=== PATIENT | female | born 1960 | race American Indian/Alaskan Native ===

== ENCOUNTER 2023-01-07 16:06 | Inpatient (IN) | payer MEDICARE, MEDICAID ==
[~2023-01-07] VITALS: Ht 167.6 cm; Wt 75.6 kg
[2023-01-07 19:14] LABS: BASOPHILS % (AUTO) 0.4 % (0-1); EOSINOPHILS # (AUTO) 0.1 X10'3 (0-0.9); EOSINOPHILS % (AUTO) 1.8 % (0-6); HEMATOCRIT 30.7 % (35.0-45.0); HEMOGLOBIN 10.2 g/dl (12.0-16.0); LYMPHOCYTES # (AUTO) 1.8 X10'3 (1.1-4.8); LYMPHOCYTES % (AUTO) 28.3 % (21-51); MEAN CORPUSCULAR HEMOGLOBIN 27.2 PG (27.0-31.0); MEAN CORPUSCULAR HGB CONC 33.2 g/dL (33.0-36.5); MEAN CORPUSCULAR VOLUME 81.9 FL (78-98); MEAN PLATELET VOLUME 6.7 FL (7.4-10.4); MONOCYTES # (AUTO) 0.4 X10'3 (0-0.9); MONOCYTES % (AUTO) 6.7 % (2-12); NEUTROPHILS # (AUTO) 3.9 X10'3 (1.8-7.7); NEUTROPHILS % (AUTO) 62.8 % (42-75); PLATELET COUNT 245 X10'3 (140-440); RED BLOOD COUNT 3.75 X10'6 (4.20-5.60); RED CELL DISTRIBUTION WIDTH 16.4 % (11.5-14.5); WHITE BLOOD COUNT 6.2 X10'3 (4.5-11.0)
[2023-01-07 19:28] LABS: ALANINE AMINOTRANSFERASE 37 U/L (12-78); ALBUMIN 3.5 G/DL (3.4-5.0); ALBUMIN/GLOBULIN RATIO 0.8 (1.1-1.5); ALKALINE PHOSPHATASE 79 IU/L (46-116); ANION GAP 8 (8-16); ASPARTATE AMINO TRANSFERASE 19 U/L (10-37); BILIRUBIN,TOTAL 0.4 MG/DL (0.1-1.0); BLOOD UREA NITROGEN 13 MG/DL (7-18); CHLORIDE 98 MMOL/L (99-107); GLUCOSE 347 MG/DL (70-104); LIPASE 174 U/L (73-393); POTASSIUM 4.2 MMOL/L (3.5-5.1); SODIUM 135 MMOL/L (135-145); TOTAL CARBON DIOXIDE 29.3 MMOL/L (24-32); eCRCL 53 ML/MIN; eGFR 56 ML/MIN
[2023-01-07 19:34] LABS: CALCIUM 9.6 MG/DL (8.5-10.1)
[2023-01-07 19:55] LABS: TOTAL CELLS COUNTED 100
[2023-01-07 19:56] LABS: ANISOCYTOSIS 1+; PLATELET ESTIMATE NORMAL; POLYCHROMASIA FEW
[2023-01-07 19:59] LABS: ELLIPTOCYTES FEW; TEAR DROP CELLS FEW
[2023-01-07] MEDS ORDERED: vancomycin/NS 1 GM ADD-VANTAGE 250 ML IV ONE (20:05)
[2023-01-07] MEDS ORDERED: CefTRIAXone 2gm/D5W 50ml BAG 50 ML IV ONE (20:05)
[2023-01-07] MEDS ORDERED: levoFLOXACIN-Levaquin 500mg/D5 100 ML IV ONE (20:50)
[2023-01-07] MEDS ORDERED: ondansetron/PF 4mg/2ml inj IV PRN (21:30)
[2023-01-07] MEDS ORDERED: acetaminophen 325mg tablet PO PRN (21:30)
[2023-01-07] MEDS ORDERED: magnesium Cl slow-release 64mg tablet PO PRN (21:30)
[2023-01-07] MEDS ORDERED: magnesium 4gm in 100ml NS 100 ML IV PRN (21:30)
[2023-01-07] MEDS ORDERED: magnesium 2GM in 50ml NS 50 ML IV PRN (21:30)
[2023-01-07] MEDS ORDERED: potassium Cl 40MEQ/1/2NS 520ml 520 ML IV PRN (21:30)
[2023-01-07] MEDS ORDERED: potassium Cl 20 mEq SR tablet PO PRN ×2 (21:30)
[2023-01-07] MEDS ORDERED: HYDROmorphone inj. 0.5 MG/0.5 ML DISP.SYRIN IV PRN (21:30)
[2023-01-07 23:10] VITALS: BP 149/79; PULSE 12; RESP 68; TEMP 97.7; O2SAT 100
--- NOTE | 2023-01-07 23:45 | NUR ---
CALLED DR. PRIDE FOR BS 324 ADVISED TO RECHECK IN AN HOUR.
[2023-01-08] MEDS: morphine 2 MG/ML inj. syringe IV PRN ×2 (00:07→05:06)
[2023-01-08] MEDS: normal saline 1000ml 1,000 ML IV SCH ×3 (00:17→22:19)
[2023-01-08] MEDS ORDERED: SALI45SP PO (00:55)
[2023-01-08] MEDS ORDERED: METF-516 PO (00:55)
[2023-01-08] MEDS ORDERED: CLIN300C54 PO (00:55)
[2023-01-08] MEDS ORDERED: POLY17PO10 PO (00:55)
[2023-01-08] MEDS ORDERED: ACET-1015 PO (00:55)
[2023-01-08] MEDS ORDERED: ACYC-1 PO (00:55)
[2023-01-08] MEDS ORDERED: ESTR42.53 VG (00:55)
[2023-01-08] MEDS ORDERED: OMEG1CAP61 PO (00:55)
[2023-01-08] MEDS ORDERED: LIRA0.6P2 SQ (00:55)
[2023-01-08] MEDS ORDERED: OXYC10TA47 PO (00:55)
[2023-01-08] MEDS ORDERED: QUET50TA15 PO (00:55)
[2023-01-08] MEDS ORDERED: ESOM40CA PO (00:55)
[2023-01-08] MEDS ORDERED: LACT10SO88 PO (00:55)
[2023-01-08] MEDS ORDERED: ROPI0.5T37 PO (00:55)
[2023-01-08] MEDS ORDERED: AMOX-117 PO (00:55)
[2023-01-08] MEDS ORDERED: GABA300C PO (00:55)
[2023-01-08] MEDS ORDERED: BALS750C7 PO (00:57)
[2023-01-08] MEDS ORDERED: ROSU10TA2 PO (00:57)
[2023-01-08] MEDS ORDERED: CHOL200074 PO (00:57)
[2023-01-08 06:52] LABS: BASOPHILS % (AUTO) 0.6 % (0-1); EOSINOPHILS # (AUTO) 0.1 X10'3 (0-0.9); EOSINOPHILS % (AUTO) 1.8 % (0-6); HEMATOCRIT 29.9 % (35.0-45.0); HEMOGLOBIN 10.1 g/dl (12.0-16.0); LYMPHOCYTES # (AUTO) 1.3 X10'3 (1.1-4.8); LYMPHOCYTES % (AUTO) 22.8 % (21-51); MEAN CORPUSCULAR HEMOGLOBIN 27.9 PG (27.0-31.0); MEAN CORPUSCULAR HGB CONC 33.8 g/dL (33.0-36.5); MEAN CORPUSCULAR VOLUME 82.4 FL (78-98); MEAN PLATELET VOLUME 7.1 FL (7.4-10.4); MONOCYTES # (AUTO) 0.4 X10'3 (0-0.9); MONOCYTES % (AUTO) 6.9 % (2-12); NEUTROPHILS % (AUTO) 67.9 % (42-75); PLATELET COUNT 242 X10'3 (140-440); RED BLOOD COUNT 3.62 X10'6 (4.20-5.60); RED CELL DISTRIBUTION WIDTH 16.3 % (11.5-14.5); WHITE BLOOD COUNT 5.8 X10'3 (4.5-11.0)
[2023-01-08] MEDS ORDERED: glucagon, human recombinant 1mg kit SUBCUT PRN (07:05)
[2023-01-08] MEDS ORDERED: dextrose 50%-water 50ml dispensing syringe IV PRN ×2 (07:05)
[2023-01-08] MEDS ORDERED: DEXTROSE 15 GM of carb/4 tabs (each vial/BOTTLE has 4 tablets) PO PRN ×2 (07:05)
[2023-01-08] MEDS ORDERED: MESSAGE TO PHARMACY PO ONE (07:05)
--- NOTE | 2023-01-08 07:10 | NUR ---
Patient in room ORTHO 4018. I have received report from NUBIA RN and had the opportunity to ask questions and assume patient care.
[2023-01-08] MEDS ORDERED: ROPINIRole 0.25mg tablet PO PRN (07:15)
[2023-01-08 07:18] LABS: ALBUMIN 3.2 G/DL (3.4-5.0); ANION GAP 9 (8-16); BLOOD UREA NITROGEN 11 MG/DL (7-18); BUN/CREATININE RATIO 12.5 (10.0-20.0); CALCIUM 9.1 MG/DL (8.5-10.1); CHLORIDE 100 MMOL/L (99-107); CREATININE 0.88 MG/DL (0.40-0.90); GLUCOSE 336 MG/DL (70-104); MAGNESIUM 1.9 MG/DL (1.5-2.4); POTASSIUM 3.9 MMOL/L (3.5-5.1); SODIUM 136 MMOL/L (135-145); TOTAL CARBON DIOXIDE 27.1 MMOL/L (24-32); eCRCL 60 ML/MIN; eGFR 65 ML/MIN
[2023-01-08 07:25] LABS: HEMOGLOBIN A1C 10.3 % (4.5-6.2)
[2023-01-08] MEDS: cefepime 1GM/NS ADD-VANTAGE 100 ML IV SCH ×2 (07:55→22:15)
[2023-01-08] MEDS: gabapentin 300mg capsule PO SCH ×2 (07:55→15:42)
[2023-01-08] MEDS: cholecalciferol (vitamin D3) 1,000 unit (25mcg) tablet PO SCH (07:55)
[2023-01-08] MEDS: BALSALAZIDE DISODIUM PO SCH ×2 (08:00→20:00)
[2023-01-08] MEDS: K and/or MAG REPLACEMENT MC SCH ×2 (08:00→20:00)
[2023-01-08] MEDS ORDERED: vancomycin/NS 1 GM ADD-VANTAGE 250 ML IV ONE (08:00)
[2023-01-08 08:16] VITALS: BP 128/69; PULSE 71; RESP 16; TEMP 98.7; O2SAT 99
[2023-01-08] MEDS: insulin Lispro (HumaLOG) vial - multi-dose SQ SCH ×3 (09:48→22:07)
[2023-01-08] MEDS: vancomycin/NS 1 GM ADD-VANTAGE 250 ML IV SCH ×2 (09:52→23:11)
[2023-01-08] MEDS ORDERED: HYDROcodone/acetaminophen 5mg/325mg tablet PO PRN (10:25)
--- NOTE | 2023-01-08 11:35 | NUR ---
Diabetes consult: Pt presents with an A1c of 10.3% and BG 297-336mg/dl for the past two days per EMR. Pt seen at bedside this morning. Pt states she's had a lot personal events occurring in her life so her health has taken a backseat however she reports her prior A1c was 11%. Pt plans on getting back on her insulin regimen and seeing her primary doctor for diabetes management after discharge. Provided verbal/written diabetes nutrition education with RD contact information to pt. Encouraged to reach out for any nutrition questions or concerns. Will continue to monitor. Addendum: 01/08/23 at [address] Amended: Links added.
[2023-01-08] MEDS ORDERED: iohexol 300mg/ml 100ml inj. ONE (12:55)
--- NOTE | 2023-01-08 14:36 | NUR ---
WOUND INFECTION EDUCATION PROVIDED BY WOUND CARE 1. Patient instructed to call their primary doctor, or go the ED immediately if any of the following symptoms occur: * Increased pain in wound * Increase in drainage from the wound * Redness in the skin surrounding the wound * Warmth in the skin surrounding the wound * Bleeding from the wound * Temperature of 101 or greater 2. If any of these occur while in the hospital tell a nurse immediately. Addendum: 01/08/23 at 1438 by Federica Pierre LVN Amended: Links added.
[2023-01-08 14:38] VITALS: BP 155/66; PULSE 74; RESP 18
[2023-01-08] MEDS: metoprolol succinate 25mg (24-HOUR) SR. Tablet PO SCH (14:44)
[2023-01-08] MEDS: OMEGA-3/DHA/EPA/FISH OIL 1 EACH CAPSULE.DR PO SCH ×3 (14:46→22:07)
[2023-01-08] MEDS ORDERED: OXYcodone immediate-release 10MG tablet PO PRN (16:05)
[2023-01-08] MEDS: oxyCODONE IR 5mg (immed. release) tablet PO PRN ×2 (17:12→23:25)
[2023-01-08 18:00] VITALS: BP 159/73; PULSE 73; RESP 16; TEMP 97.6; O2SAT 99
--- NOTE | 2023-01-08 18:29 | NUR ---
Chavo seen by Dr Weeks , meds addressed. very painful in right calf. pain Meds changed to home meds . Imaging done see report. report given to August JONNA
[2023-01-08] MEDS ORDERED: QUETIAPINE 50 MG TAB.SR.24H PO SCH (21:00)
[2023-01-08] MEDS ORDERED: insulin glargine (Lantus) pen - multi-dose SQ SCH ×2 (21:00)
[2023-01-08 22:00] VITALS: BP 118/55; RESP 16; TEMP 98.1; O2SAT 99
[2023-01-08] MEDS: quetiapine 100mg tablet PO SCH (22:07)
[2023-01-08] MEDS: ROSUVASTATIN CALCIUM 5 MG TABLET PO SCH (22:13)
[2023-01-08] MEDS: enoxaparin 40mg/0.4ml syringe SUBCUT SCH (22:22)
[2023-01-09] MEDS: gabapentin 300mg capsule PO SCH ×3 (01:00→16:48)
[2023-01-09] MEDS: normal saline 1000ml 1,000 ML IV SCH ×3 (03:30→23:30)
[2023-01-09] MEDS: oxyCODONE IR 5mg (immed. release) tablet PO PRN ×3 (05:49→18:25)
[2023-01-09 06:29] VITALS: BP 138/72; PULSE 69; RESP 16; TEMP 98.5; O2SAT 98
[2023-01-09 07:00] VITALS: RESP 16; O2SAT 98
[2023-01-09] MEDS ORDERED: VANCOMYCIN LEVEL IV ONE (07:30)
[2023-01-09] MEDS: pantoprazole 40mg Tablet.DR PO SCH (07:37)
[2023-01-09] MEDS: acyclovir 200 MG capsule PO SCH (07:37)
[2023-01-09] MEDS: metoprolol succinate 25mg (24-HOUR) SR. Tablet PO SCH (07:37)
[2023-01-09] MEDS: OMEGA-3/DHA/EPA/FISH OIL 1 EACH CAPSULE.DR PO SCH ×4 (07:37→20:36)
[2023-01-09] MEDS: cholecalciferol (vitamin D3) 1,000 unit (25mcg) tablet PO SCH (07:37)
[2023-01-09] MEDS: cefepime 1GM/NS ADD-VANTAGE 100 ML IV SCH ×2 (07:38→20:35)
[2023-01-09] MEDS: insulin Lispro (HumaLOG) vial - multi-dose SQ SCH ×4 (07:49→22:22)
[2023-01-09] MEDS: polyethylene glycol 3350 17gm powd pack PO SCH (07:51)
[2023-01-09] MEDS: lactulose 20gm/30ml cup PO SCH ×2 (07:51→12:08)
[2023-01-09] MEDS: BALSALAZIDE DISODIUM PO SCH ×2 (07:51→20:44)
[2023-01-09] MEDS: K and/or MAG REPLACEMENT MC SCH ×2 (08:00→20:00)
[2023-01-09 08:54] LABS: BASOPHILS % (AUTO) 0.6 % (0-1); EOSINOPHILS # (AUTO) 0.1 X10'3 (0-0.9); EOSINOPHILS % (AUTO) 1.8 % (0-6); HEMATOCRIT 29.5 % (35.0-45.0); HEMOGLOBIN 9.8 g/dl (12.0-16.0); LYMPHOCYTES # (AUTO) 1.7 X10'3 (1.1-4.8); LYMPHOCYTES % (AUTO) 28.3 % (21-51); MEAN CORPUSCULAR HEMOGLOBIN 27.5 PG (27.0-31.0); MEAN CORPUSCULAR HGB CONC 33.2 g/dL (33.0-36.5); MEAN CORPUSCULAR VOLUME 82.9 FL (78-98); MONOCYTES # (AUTO) 0.3 X10'3 (0-0.9); MONOCYTES % (AUTO) 5.3 % (2-12); NEUTROPHILS # (AUTO) 3.9 X10'3 (1.8-7.7); PLATELET COUNT 222 X10'3 (140-440); RED BLOOD COUNT 3.56 X10'6 (4.20-5.60); RED CELL DISTRIBUTION WIDTH 16.4 % (11.5-14.5); WHITE BLOOD COUNT 6.1 X10'3 (4.5-11.0)
[2023-01-09 09:07] LABS: ALBUMIN 2.9 G/DL (3.4-5.0); ANION GAP 7 (8-16); BLOOD UREA NITROGEN 11 MG/DL (7-18); BUN/CREATININE RATIO 14.7 (10.0-20.0); CALCIUM 8.7 MG/DL (8.5-10.1); CHLORIDE 103 MMOL/L (99-107); CREATININE 0.75 MG/DL (0.40-0.90); GLUCOSE 357 MG/DL (70-104); MAGNESIUM 1.9 MG/DL (1.5-2.4); PHOSPHORUS 3.4 MG/DL (2.3-4.5); POTASSIUM 3.8 MMOL/L (3.5-5.1); SODIUM 137 MMOL/L (135-145); TOTAL CARBON DIOXIDE 27.5 MMOL/L (24-32); eCRCL 71 ML/MIN; eGFR 78 ML/MIN
[2023-01-09] MEDS: vancomycin/NS 1 GM ADD-VANTAGE 250 ML IV SCH (09:56)
[2023-01-09] MEDS: acetaminophen 325mg tablet PO PRN ×2 (10:08→20:46)
[2023-01-09 11:27] VITALS: BP 158/75; PULSE 81; RESP 18; TEMP 98; O2SAT 99
[2023-01-09] MEDS ORDERED: LIDOcaine 1% W/epiNEPHrine 1:100,000 20ml vial SQ ONE (13:05)
[2023-01-09 18:00] VITALS: BP 165/72; PULSE 70; RESP 18; TEMP 98.2; O2SAT 99
--- NOTE | 2023-01-09 18:10 | NUR ---
Patient in room ORTHO 4018. I have received report from Best COYLE and had the opportunity to ask questions and assume patient care.
--- NOTE | 2023-01-09 18:20 | NUR ---
Problems reprioritized. Patient report given, questions answered & plan of care reviewed with JONNA LUBIN.
[2023-01-09] MEDS: quetiapine 100mg tablet PO SCH (20:36)
[2023-01-09] MEDS: ROSUVASTATIN CALCIUM 5 MG TABLET PO SCH (20:38)
[2023-01-09] MEDS: enoxaparin 40mg/0.4ml syringe SUBCUT SCH (20:42)
[2023-01-09 20:49] VITALS: RESP 17; O2SAT 99
[2023-01-09] MEDS: insulin glargine (Lantus) pen - multi-dose SQ SCH (21:00)
[2023-01-09] MEDS: VANCOmycin 1250MG/NS 250ml Bag 250 ML IV SCH (21:30)
[2023-01-09 22:00] VITALS: BP 143/67; PULSE 80; RESP 17; TEMP 98.3; O2SAT 99
--- NOTE | 2023-01-09 23:41 | NUR ---
Charting by Pauline LEIVA reviewed by Kvng Pineda RN
[2023-01-10] VITALS (7 sets, daily range): BP systolic 138–151; BP diastolic 61–75; PULSE 72–78; RESP 13–18; TEMP 97.9–98.3; O2SAT 96–99
[2023-01-10] MEDS: gabapentin 300mg capsule PO SCH ×4 (00:09→23:37)
[2023-01-10] MEDS: normal saline 1000ml 1,000 ML IV SCH ×3 (00:10→23:39)
[2023-01-10] MEDS: oxyCODONE IR 5mg (immed. release) tablet PO PRN ×4 (01:47→20:18)
--- NOTE | 2023-01-10 06:07 | NUR ---
Problems reprioritized. Patient report given, questions answered & plan of care reviewed with Best COYLE.
--- NOTE | 2023-01-10 06:14 | NUR ---
Patient in room ORTHO 4018. I have received report from JONNA Chau and had the opportunity to ask questions and assume patient care.
[2023-01-10 07:21] LABS: BASOPHILS % (AUTO) 0.4 % (0-1); EOSINOPHILS # (AUTO) 0.1 X10'3 (0-0.9); EOSINOPHILS % (AUTO) 2.2 % (0-6); HEMATOCRIT 29.7 % (35.0-45.0); HEMOGLOBIN 9.7 g/dl (12.0-16.0); LYMPHOCYTES # (AUTO) 1.9 X10'3 (1.1-4.8); LYMPHOCYTES % (AUTO) 33.7 % (21-51); MEAN CORPUSCULAR HGB CONC 32.7 g/dL (33.0-36.5); MEAN CORPUSCULAR VOLUME 82.6 FL (78-98); MEAN PLATELET VOLUME 6.8 FL (7.4-10.4); MONOCYTES # (AUTO) 0.4 X10'3 (0-0.9); MONOCYTES % (AUTO) 6.8 % (2-12); NEUTROPHILS # (AUTO) 3.2 X10'3 (1.8-7.7); NEUTROPHILS % (AUTO) 56.9 % (42-75); PLATELET COUNT 242 X10'3 (140-440); RED BLOOD COUNT 3.59 X10'6 (4.20-5.60); RED CELL DISTRIBUTION WIDTH 16.2 % (11.5-14.5); WHITE BLOOD COUNT 5.6 X10'3 (4.5-11.0)
[2023-01-10] MEDS: OMEGA-3/DHA/EPA/FISH OIL 1 EACH CAPSULE.DR PO SCH ×4 (07:46→20:18)
[2023-01-10] MEDS: lactulose 20gm/30ml cup PO SCH (07:46)
[2023-01-10] MEDS: pantoprazole 40mg Tablet.DR PO SCH (07:46)
[2023-01-10] MEDS: cholecalciferol (vitamin D3) 1,000 unit (25mcg) tablet PO SCH (07:46)
[2023-01-10] MEDS: cefepime 1GM/NS ADD-VANTAGE 100 ML IV SCH ×2 (07:47→19:34)
[2023-01-10] MEDS: acyclovir 200 MG capsule PO SCH (07:47)
[2023-01-10] MEDS: metoprolol succinate 25mg (24-HOUR) SR. Tablet PO SCH (07:47)
[2023-01-10 07:54] LABS: ANION GAP 8 (8-16); BLOOD UREA NITROGEN 11 MG/DL (7-18); BUN/CREATININE RATIO 16.9 (10.0-20.0); CALCIUM 8.4 MG/DL (8.5-10.1); CHLORIDE 107 MMOL/L (99-107); CREATININE 0.65 MG/DL (0.40-0.90); GLUCOSE 146 MG/DL (70-104); MAGNESIUM 1.8 MG/DL (1.5-2.4); PHOSPHORUS 4.1 MG/DL (2.3-4.5); POTASSIUM 3.8 MMOL/L (3.5-5.1); SODIUM 144 MMOL/L (135-145); TOTAL CARBON DIOXIDE 28.9 MMOL/L (24-32); eCRCL 82 ML/MIN; eGFR > 90 ML/MIN
[2023-01-10] MEDS: BALSALAZIDE DISODIUM PO SCH ×2 (08:00→19:34)
[2023-01-10] MEDS: polyethylene glycol 3350 17gm powd pack PO SCH (08:00)
[2023-01-10] MEDS: K and/or MAG REPLACEMENT MC SCH ×2 (08:00→20:00)
[2023-01-10] MEDS ORDERED: estrogens, conjug. vaginal cream 45gm tube VG SCH (08:00)
[2023-01-10] MEDS: insulin Lispro (HumaLOG) vial - multi-dose SQ SCH ×3 (10:13→21:04)
[2023-01-10] MEDS: VANCOmycin 1250MG/NS 250ml Bag 250 ML IV SCH ×2 (10:15→20:22)
[2023-01-10] MEDS ORDERED: morphine 2 MG/ML inj. syringe IV ONE (11:20)
--- NOTE | 2023-01-10 14:05 | NUR ---
WOUND INFECTION EDUCATION PROVIDED BY WOUND CARE 1. Patient instructed to call their primary doctor, or go the ED immediately if any of the following symptoms occur: * Increased pain in wound * Increase in drainage from the wound * Redness in the skin surrounding the wound * Warmth in the skin surrounding the wound * Bleeding from the wound * Temperature of 101 or greater 2. If any of these occur while in the hospital tell a nurse immediately. Addendum: 01/10/23 at 1413 by Ethan Michel RN Amended: Links added.
[2023-01-10] MEDS: enoxaparin 40mg/0.4ml syringe SUBCUT SCH (19:35)
[2023-01-10] MEDS: quetiapine 100mg tablet PO SCH (20:18)
[2023-01-10] MEDS: ROSUVASTATIN CALCIUM 5 MG TABLET PO SCH (20:18)
[2023-01-10] MEDS: insulin glargine (Lantus) pen - multi-dose SQ SCH (21:05)
--- NOTE | 2023-01-11 02:58 | NUR ---
Problems reprioritized. Patient report given, questions answered & plan of care reviewed with JONNA Barba.
[2023-01-11] MEDS: oxyCODONE IR 5mg (immed. release) tablet PO PRN ×3 (03:31→15:45)
[2023-01-11] MEDS: pantoprazole 40mg Tablet.DR PO SCH (05:54)
[2023-01-11 06:00] VITALS: BP 156/78; PULSE 77; RESP 15; TEMP 98.6; O2SAT 100
--- NOTE | 2023-01-11 06:20 | NUR ---
Problems reprioritized. Patient report given, questions answered & plan of care reviewed with NIKKI Argueta & JONNA Espinoza.
--- NOTE | 2023-01-11 06:26 | NUR ---
I have received report from JONNA Barba and had the opportunity to ask questions and assume patient care. No distress at this time.
[2023-01-11] MEDS: metoprolol succinate 25mg (24-HOUR) SR. Tablet PO SCH (07:18)
[2023-01-11] MEDS: cholecalciferol (vitamin D3) 1,000 unit (25mcg) tablet PO SCH (07:18)
[2023-01-11] MEDS: OMEGA-3/DHA/EPA/FISH OIL 1 EACH CAPSULE.DR PO SCH ×4 (07:18→20:56)
[2023-01-11] MEDS: gabapentin 300mg capsule PO SCH ×2 (07:18→16:00)
[2023-01-11] MEDS: acyclovir 200 MG capsule PO SCH (07:18)
[2023-01-11] MEDS: acetaminophen 325mg tablet PO PRN ×2 (07:19→19:26)
[2023-01-11] MEDS: BALSALAZIDE DISODIUM PO SCH ×2 (07:19→19:19)
[2023-01-11] MEDS: K and/or MAG REPLACEMENT MC SCH ×2 (07:20→20:00)
[2023-01-11] MEDS: polyethylene glycol 3350 17gm powd pack PO SCH (07:20)
[2023-01-11] MEDS: lactulose 20gm/30ml cup PO SCH (07:20)
[2023-01-11] MEDS ORDERED: VANCOMYCIN LEVEL IV ONE (07:30)
[2023-01-11] MEDS: insulin Lispro (HumaLOG) vial - multi-dose SQ SCH ×2 (07:32→19:25)
[2023-01-11 08:00] VITALS: RESP 16; O2SAT 98
[2023-01-11] MEDS: cefepime 1GM/NS ADD-VANTAGE 100 ML IV SCH ×2 (08:25→19:19)
[2023-01-11] MEDS: VANCOmycin 1250MG/NS 250ml Bag 250 ML IV SCH ×2 (09:17→21:12)
[2023-01-11 09:46] LABS: BASOPHILS % (AUTO) 0.7 % (0-1); EOSINOPHILS # (AUTO) 0.1 X10'3 (0-0.9); EOSINOPHILS % (AUTO) 2.1 % (0-6); HEMATOCRIT 31.4 % (35.0-45.0); HEMOGLOBIN 10.3 g/dl (12.0-16.0); LYMPHOCYTES # (AUTO) 1.4 X10'3 (1.1-4.8); LYMPHOCYTES % (AUTO) 27.6 % (21-51); MEAN CORPUSCULAR HGB CONC 32.8 g/dL (33.0-36.5); MEAN CORPUSCULAR VOLUME 82.3 FL (78-98); MEAN PLATELET VOLUME 6.7 FL (7.4-10.4); MONOCYTES # (AUTO) 0.3 X10'3 (0-0.9); MONOCYTES % (AUTO) 6.4 % (2-12); NEUTROPHILS # (AUTO) 3.2 X10'3 (1.8-7.7); NEUTROPHILS % (AUTO) 63.2 % (42-75); PLATELET COUNT 258 X10'3 (140-440); RED BLOOD COUNT 3.82 X10'6 (4.20-5.60)
[2023-01-11 10:00] VITALS: BP 156/84; PULSE 71; RESP 18; TEMP 97.6; O2SAT 96
[2023-01-11] MEDS ORDERED: iohexol 300mg/ml 100ml inj. ONE (10:38)
[2023-01-11] MEDS: MESSAGE TO NURSING PO SCH (11:06)
[2023-01-11] MEDS ORDERED: METO-395 PO (13:22)
[2023-01-11] MEDS ORDERED: LANTUS SQ (13:22)
[2023-01-11] MEDS ORDERED: LACT1CAP60 PO (13:27)
[2023-01-11] MEDS ORDERED: OXYC-150 PO ×2 (13:43)
[2023-01-11] MEDS ORDERED: LINE600T11 PO (13:48)
--- NOTE | 2023-01-11 15:08 | NUR ---
The transportation provided for this pt is not able to come and get her until 11 a.m tomorrow. Notifying
[2023-01-11] MEDS: normal saline 1000ml 1,000 ML IV SCH (15:30)
--- NOTE | 2023-01-11 16:03 | NUR ---
[employer] documentation: I have reviewed and agree with all interventions, assessments performed and documented by Ellie Burciaga LVN.
[2023-01-11 18:00] VITALS: BP_SYST 130; BP_SYST 172; BP_DIAS 57; BP_DIAS 76; PULSE 73; PULSE 75; RESP 17; RESP 18; TEMP 98; TEMP 98.2; O2SAT 98; O2SAT 99
[2023-01-11] MEDS: enoxaparin 40mg/0.4ml syringe SUBCUT SCH (19:20)
[2023-01-11 20:00] VITALS: RESP 16; O2SAT 98
[2023-01-11] MEDS: quetiapine 100mg tablet PO SCH (20:56)
[2023-01-11] MEDS: ROSUVASTATIN CALCIUM 5 MG TABLET PO SCH (20:56)
[2023-01-11] MEDS: insulin glargine (Lantus) pen - multi-dose SQ SCH (21:01)
[2023-01-11 22:00] VITALS: BP 130/57; PULSE 75; RESP 18; TEMP 98.2; O2SAT 98
[2023-01-12] MEDS: gabapentin 300mg capsule PO SCH ×2 (01:36→07:12)
[2023-01-12] MEDS: oxyCODONE IR 5mg (immed. release) tablet PO PRN (05:30)
--- NOTE | 2023-01-12 06:37 | NUR ---
Problems reprioritized. Patient report given, questions answered & plan of care reviewed with JERAD COYLE.
--- NOTE | 2023-01-12 06:38 | NUR ---
Patient in room ORTHO 4018. I have received report from STEPHANIE COYLE and had the opportunity to ask questions and assume patient care.
--- NOTE | 2023-01-12 07:05 | NUR ---
Message: JONNA MARS, ROHINI, 6534. RE: [id number]. PT. WANTS HER PHARMACY TO BE [facility] IN [place]. [place]. PLEASE NOTIFY. THANKS Addendum: 01/12/23 at 0815 by Don Montana RN PAGER ID: [phone] MESSAGE: JONNA MARS, ROHINI, 7699, RE: [id number]. PT. WANTS HER [facility] ON [address] Addendum: 01/12/23 at 0916 by Don Montana RN PAGER ID: [phone] MESSAGE: JONNA MARS ORTHO, 9994. RE: [id number]. [facility], AND THEY ARE [facility]ING OVER [facility], BUT NOT THE OXYCODONE. [place]. ANY SUGGESTIONS? THANKS Addendum: 01/12/23 at 1123 by Don Montana RN DID NOT HERE BACK FROM MD BY THE TIME OF DISCHARGE.
[2023-01-12] MEDS: pantoprazole 40mg Tablet.DR PO SCH (07:13)
[2023-01-12] MEDS: acyclovir 200 MG capsule PO SCH (07:13)
[2023-01-12] MEDS: OMEGA-3/DHA/EPA/FISH OIL 1 EACH CAPSULE.DR PO SCH (07:13)
[2023-01-12] MEDS: metoprolol succinate 25mg (24-HOUR) SR. Tablet PO SCH (07:13)
[2023-01-12] MEDS: cholecalciferol (vitamin D3) 1,000 unit (25mcg) tablet PO SCH (07:13)
[2023-01-12 07:14] LABS: BASOPHILS % (AUTO) 0.4 % (0-1); EOSINOPHILS # (AUTO) 0.1 X10'3 (0-0.9); EOSINOPHILS % (AUTO) 1.9 % (0-6); HEMATOCRIT 32.3 % (35.0-45.0); HEMOGLOBIN 10.7 g/dl (12.0-16.0); LYMPHOCYTES # (AUTO) 1.7 X10'3 (1.1-4.8); LYMPHOCYTES % (AUTO) 25.8 % (21-51); MEAN CORPUSCULAR HEMOGLOBIN 27.3 PG (27.0-31.0); MEAN CORPUSCULAR HGB CONC 33.2 g/dL (33.0-36.5); MEAN CORPUSCULAR VOLUME 82.3 FL (78-98); MEAN PLATELET VOLUME 7.1 FL (7.4-10.4); MONOCYTES # (AUTO) 0.4 X10'3 (0-0.9); MONOCYTES % (AUTO) 5.6 % (2-12); NEUTROPHILS # (AUTO) 4.3 X10'3 (1.8-7.7); NEUTROPHILS % (AUTO) 66.3 % (42-75); PLATELET COUNT 271 X10'3 (140-440); RED BLOOD COUNT 3.93 X10'6 (4.20-5.60); RED CELL DISTRIBUTION WIDTH 16.5 % (11.5-14.5); WHITE BLOOD COUNT 6.5 X10'3 (4.5-11.0)
[2023-01-12] MEDS: lactulose 20gm/30ml cup PO SCH (07:14)
[2023-01-12] MEDS: polyethylene glycol 3350 17gm powd pack PO SCH (07:14)
[2023-01-12 07:32] LABS: ALBUMIN 3.2 G/DL (3.4-5.0); ANION GAP 5 (8-16); BLOOD UREA NITROGEN 12 MG/DL (7-18); BUN/CREATININE RATIO 16.7 (10.0-20.0); CALCIUM 9.3 MG/DL (8.5-10.1); CHLORIDE 105 MMOL/L (99-107); CREATININE 0.72 MG/DL (0.40-0.90); GLUCOSE 146 MG/DL (70-104); PHOSPHORUS 3.9 MG/DL (2.3-4.5); POTASSIUM 3.7 MMOL/L (3.5-5.1); SODIUM 143 MMOL/L (135-145); TOTAL CARBON DIOXIDE 32.6 MMOL/L (24-32); eCRCL 74 ML/MIN; eGFR 82 ML/MIN
[2023-01-12 08:00] VITALS: BP 151/79; PULSE 84; RESP 17; TEMP 98; O2SAT 99
[2023-01-12] MEDS: K and/or MAG REPLACEMENT MC SCH (08:00)
[2023-01-12] MEDS: MESSAGE TO NURSING PO SCH (08:00)
[2023-01-12] MEDS: VANCOmycin 1250MG/NS 250ml Bag 250 ML IV SCH (09:36)
[2023-01-12] MEDS: cefepime 1GM/NS ADD-VANTAGE 100 ML IV SCH (09:36)
[2023-01-12] MEDS: insulin Lispro (HumaLOG) vial - multi-dose SQ SCH (09:45)
[2023-01-12] MEDS: BALSALAZIDE DISODIUM PO SCH (09:55)
[2023-01-12 10:36] VITALS: RESP 16; O2SAT 95
--- NOTE | 2023-01-12 11:23 | NUR ---
PT. ALERT AND ORIENTATED UPON DISCHARGE, IV CANNULA WHOLE AND INTACT UPON REMOVAL, PT. EDUCATED ON WOUND CARE AND NEW MEDS. PT. EDUCATED TO FOLLOW UP WITH PRIMARY CARE PHYSICIAN WITHIN 1 WEEK. PT. LEFT WITH ALL BELONGINGS. PT. LEFT SAFELY IN A WHEELCHAIR TO A [place]AX[place] BACK HOME. WOUND CARE PROVIDED BEFORE DISCHARGE AND PHOTOS WERE TAKEN.
--- NOTE | 2023-01-12 13:17 | NUR ---
PT. WENT TO [facility] AND CALLED ME BACK STATING THE MEDS WERE NOT THERE, I CALLED [facility] BACK AND THEY TOLD ME THEY DID SEND THE MEDS TO [facility]. I CALLED [facility] MYSELF, AND THE PHARMACIST TOLE ME THEY GOT THE MEDICATIONS, BUT THE ANTIBIOTIC NEEDED A PRE AUTHORIZATION FROM A DOCTOR, SO I CALLED THE CLOTH BALER AND TOLD HER THIS. SHE CALLED [facility] TO TALK TO THE PHARMACIST, AND THEN SHE CALLED ME BACK STATING THE PT. WANTS THE OXYCODONE PRESCRIPTION THAT [facility] COULD NOT FILL OR FAX OVER TO [facility], AND TO ASK THE MD IF SHE CAN PLEASE WRITE A NEW PRESCRIPTION FOR PERCOCET. SO I PAGED THE MD ABOUT THE PERCOCET. CASE MANAGEMENT IS WORKING ON THIS PROBLEM WITH THE ANTIBIOTIC AND THE PERCOCET.
[2023-01-12] MEDS ORDERED: OXYC1TAB17 PO (15:26)
== END 2023-01-12 11:17 | disposition home or self-care (01) | DRG 603 ==
LOC: ER 16:07 → ED HOLD 21:29 → EDBEDREQ 22:26 → ORTHO 4S 23:06
PROVIDERS: ADMIT Internal Medicine; ATTEND Family Medicine
DX: L03.115 Cellulitis of right lower limb (principal); E11.65 Type 2 diabetes mellitus with hyperglycemia; I48.91 Unspecified atrial fibrillation; D64.9 Anemia, unspecified; M47.22 Other spondylosis with radiculopathy, cervical region; B00.9 Herpesviral infection, unspecified; K58.1 Irritable bowel syndrome with constipation; G25.81 Restless legs syndrome; F32.A Depression, unspecified; E11.40 Type 2 diabetes mellitus with diabetic neuropathy, unspecified; Z79.4 Long term (current) use of insulin; Z80.0 Family history of malignant neoplasm of digestive organs; Z82.49 Family history of ischemic heart disease and other diseases of the circulatory system; Z83.3 Family history of diabetes mellitus; Z88.6 Allergy status to analgesic agent; Z88.8 Allergy status to other drugs, medicaments and biological substances; Z79.899 Other long term (current) drug therapy
CPT/HCPCS: 36415; 73590; 73610; 73701; 80048; 80053; 82948; 83036; 83605; 83690; 83735; 84100; 84132; 84145; 85007; 85025; 87040; 87070; 87081; 93971; 99285; A4649; A6222; A6250; A6258; A6449; G0378; J0692; J0696; J1170; J1650; J1815; J1956; J2270; J3370; J3490; J7030; Q9967